=== PATIENT | male | born 1955 | race Caucasian/White ===

== ENCOUNTER → 2021-09-30 | Day surgery (SDC) | payer MEDICARE, OTHER ==
[~2021-09-30] VITALS: Ht 170.2 cm; Wt 97.5 kg
[~2021-09-30] MED LIST: DIAZEPAM5 MG PO; LEVOTHYROXINE50 MCG PO; MOTRIN600 MG PO; OMEPRAZOLE40 MG PO; PAROXETINE 20MG20 MG PO; VENTOLIN HFA18 GM INH
[2021-09-30 08:44] LABS: HCT 45.1 % (42.0-52.0); HGB 14.6 g/dl (13.2-18.0); MCH 29.1 pg (25.0-31.0); MCHC 32.4 g/dL (32.0-36.0); MCV 89.8 fL (78.0-100.0); MPV 9.4 fL (6.0-9.5); RBC 5.02 M/uL (4.70-6.00); RDW 12.5 % (11.5-14.0); WBC 6.3 K/uL (4.0-10.5)
[2021-09-30 09:50] LABS: ALBUMIN 3.4 g/dL (3.4-5.0); BILIRUBIN - TOTAL 0.5 mg/dL (0.2-1.0); BUN/CREAT RATIO (CALC) 14.5 RATIO; CREATININE 0.83 mg/dL (0.67-1.17); GLOBULIN (CALCULATION) 3.6 g/dL; POTASSIUM 4.5 mmol/L (3.5-5.1)
== END | disposition home or self-care (01) ==
LOC: FAS 08:20
PROVIDERS: Surgery
DX: K22.2 Esophageal obstruction (principal); K29.50 Unspecified chronic gastritis without bleeding; K21.00 Gastro-esophageal reflux disease with esophagitis, without bleeding; E03.9 Hypothyroidism, unspecified; J45.909 Unspecified asthma, uncomplicated
CPT/HCPCS: 36415; 80053; 93005; C1726; J2704; J7120